=== PATIENT | female | born 1975 | race African-American/Black ===

== ENCOUNTER 2020-05-18 08:01 | Emergency (ER) | payer MEDICAID ==
[~2020-05-18] VITALS: Ht 172.7 cm; Wt 82.0 kg
[2020-05-18] MEDS ORDERED: IBUPROFEN 600MG TABLET PO ONE (08:30)
[2020-05-18 08:32] VITALS: BP 150/81
[2020-05-18] MEDS ORDERED: IBUP-2029 MT (08:32)
== END 2020-05-18 09:11 | disposition home or self-care (01) ==
LOC: ER 08:01
DX: M25.562 Pain in left knee (principal); G89.29 Other chronic pain; Z59.0 Homelessness
CPT/HCPCS: 99282

== ENCOUNTER 2020-10-18 00:53 | Emergency (ER) | payer MEDICAID ==
[~2020-10-18] VITALS: Ht 170.2 cm; Wt 57.0 kg
[~2020-10-18 00:53] MED LIST: IBUP-2029 MT
[2020-10-18] MEDS ORDERED: KETOROLAC 30MG/ML VIAL IV STA (01:48)
[2020-10-18] MEDS ORDERED: ONDANSETRON HCL 4MG/2ML INJ IV STA (01:48)
[2020-10-18] MEDS ORDERED: SODIUM CHLORIDE 0.9% 1,000 ML IV ONE (02:00)
[2020-10-18 02:15] LABS: BASOPHILS % 0.7 % (0.0-2.0); EOSINOPHILS % 1.6 % (0.0-5.0); HEMATOCRIT. 38.3 % (36.0-48.0); HEMOGLOBIN. 12.9 g/dL (12.0-16.0); LYMPHOCYTES % 50.4 % (20.0-50.0); MEAN CORPUSCULAR HEMOGLOBIN 33.9 pg (28.0-32.0); MEAN CORPUSCULAR VOLUME 100.8 fL (81.0-99.0); MEAN PLATELET VOLUME 7.3 fl (7.4-10.4); MONOCYTES % 9.5 % (2.0-8.0); NEUTROPHILS % 37.8 % (40.0-76.0); PLATELET 265 x1000/uL (130-400); RED CELL DISTRIBUTION WIDTH 13.9 % (11.6-14.6)
[2020-10-18 02:22] LABS: CHLORIDE 108 mEq/L (98-107)
[2020-10-18] MEDS ORDERED: ONDA4TAB5 MT (02:36)
[2020-10-18] MEDS ORDERED: ACET650T37 MT (02:37)
[2020-10-18 03:15] VITALS: BP 135/79
== END 2020-10-18 03:30 | disposition home or self-care (01) ==
LOC: ER 00:53
DX: M79.18 Myalgia, other site (principal); R11.2 Nausea with vomiting, unspecified; T88.1XXA Other complications following immunization, not elsewhere classified, initial encounter; X58.XXXA Exposure to other specified factors, initial encounter; J45.909 Unspecified asthma, uncomplicated
CPT/HCPCS: 36415; 80053; 83690; 85025; 96361; 96374; 96375; 99284; J1885; J2405; J7030